=== PATIENT | female | born 1995 | race Caucasian/White ===

== ENCOUNTER 2017-02-06 20:19 | Emergency (ER) | payer OTHER ==
[2017-02-06 21:06] LABS: Hematocrit 40.9 % (30.3-42.9); Hemoglobin 13.6 gm/dl (10.1-14.3); Mean Corpuscular HGB Conc 33 % (30-34); Mean Corpuscular Hemoglobin 31 pg (28-32); Mean Corpuscular Volume 92 fl (79-97); Platelet Count 220 K/mm3 (140-440); Red Blood Count 4.45 M/mm3 (3.65-5.03); Red Cell Distribution Width 13.2 % (13.2-15.2)
[2017-02-06 21:21] LABS: BUN/Creatinine Ratio 18; Blood Urea Nitrogen 9 mg/dL (7-17); Calcium 9.6 mg/dL (8.4-10.2); Hemolysis Index 5
[2017-02-06 22:15] LABS: Bilirubin,Urine NEG (Negative); Blood,Urine NEG (Negative); Color,Urine Yellow (Yellow); Mucus,Urine 3+ /HPF; Nitrite,Urine NEG (Negative)
--- NOTE | 2017-02-07 05:54 | Ultrasound Report ---
FINAL REPORT EXAM: US OB TRANSVAGINAL HISTORY: VAGINAL BLEEDING WITH TECHNIQUE: Transvaginal imaging was obtained of the pelvis along with Doppler interrogation of the uterus and adnexa. FINDINGS: The uterus is retroverted measuring 9.6 cm x 6.5 cm x 6.5 cm. Within the uterus is a gestational sac containing a yolk sac and embryo. The embryo measures 20.7 millimeters and crown-rump length. There is corresponds to an 8 week 5 day IUP. The heart rate is 178 BPM. Adjacent to the gestational sac is a hypoechoic area measuring 2.2 cm x 0.4 cm x 0.7 cm consistent with a subchorionic bleed. Free fluid is not seen. The right ovary measures 3.1 cm x 1.7 cm x 2.5 cm. Within the right ovary is a hemorrhagic hypoechoic cyst measuring 1.7 cm in diameter. The left ovary measures 2.5 cm x 1.6 cm x 1.5 cm. Within the left ovary are several small benign follicles. IMPRESSION: Single viable IUP of 8 weeks 5 days. heart rate is 178 BPM. Functional cysts in both ovaries as described. No evidence of free fluid.
--- NOTE | 2017-02-07 05:55 | Ultrasound Report ---
FINAL REPORT EXAM: US OB < = 14 WEEKS FETUS HISTORY: VAGINAL BLEEDING WITH TECHNIQUE: Transabdominal imaging was obtained of the pelvis along with Doppler interrogation of the uterus and adnexa. FINDINGS: The uterus is retroverted measuring 9.6 cm x 6.5 cm x 6.5 cm. Within the uterus is a gestational sac containing a yolk sac and embryo. The embryo measures 20.7 millimeters and crown-rump length. This corresponds to an 8 week 5 day IUP. The heart rate is 178 BPM. Adjacent to the gestational sac is a hypoechoic area measuring 2.2 cm x 0.4 cm x 0.7 cm. This is consistent with a subchorionic hemorrhage. The right ovary measures 3.1 cm x 1.7 cm x 2.5 cm. Within the right ovary is a hemorrhagic cyst measuring 1.7 cm in diameter. The left ovary measures 2.5 cm x 1.6 cm x 1.5 cm. There is several small follicles in the left ovary. Free fluid is not seen. IMPRESSION: Single viable IUP, 8 weeks 5 days. heart is 178 BPM. Functional cysts in both ovaries. No evidence of free fluid in the pelvis.
--- NOTE | 2017-02-07 08:15 | Emergency Department Report ---
ED HPI - General Chief complaint: Vaginal Bleeding Stated complaint: VAGINAL BLEEDING Time Seen by Provider: 02/07/17 07:32 Source: patient Mode of arrival: Ambulatory Limitations: Language Barrier - History of Present Illness Initial comments: Patient is a 21-year-old female who is presenting with lower abdominal cramping as well as vaginal discharge. Patient states vaginal discharge and his lites less than a period mostly when she wipes. Patient states she was recently diagnosed with UTI approximately a week ago. Patient states symptoms are still present she does have some mild dysuria. Patient took a home test and it was positive. She suspect that she is approximately one- month . Patient has no other symptoms at this time. MD Complaint: abdominal pain, vaginal bleeding -: days(s) (2) Radiation: none Severity: mild Severity scale (0 -10): 3 Quality: cramping Consistency: constant Improves with: none Worsens with: none Associated symptoms: vaginal bleeding, abdominal pain, dysuria. denies: nausea/ vomiting, vaginal discharge, headache, vision changes, malaise, dysparuenia, rash, shortness of breath, syncope, weakness Vaginal bleeding: none :: Yes - Related Data Previous Rx's Medication Instructions Recorded Last Taken Type Nitrofurantoin [place]/M-Cryst 100 mg PO Q12HR 7 Days capsule 02/07/17 Unknown Rx [Macrobid CAP] Allergies Allergy/AdvReac Type Severity Reaction Status Date / Time No Known Allergies Allergy Unverified 02/06/17 20:27 ED Review of Systems ROS: Stated complaint: VAGINAL BLEEDING Other details as noted in HPI Comment: All other systems reviewed and negative ED Past Medical Hx - Past Medical History Additional medical history: HYPOTHYROIDISM - Social History Smoking Status: Never Smoker Substance Use Type: None - Medications Home Medications: Home Medications Medication Instructions Recorded Confirmed Last Taken Type Nitrofurantoin [place]/M-Cryst 100 mg PO Q12HR 7 Days capsule 02/07/17 Unknown Rx [Macrobid CAP] ED Physical Exam - General Limitations: Language Barrier General appearance: alert, in no apparent distress - Head Head exam: Present: atraumatic, normocephalic - Eye Eye exam: Present: normal appearance - ENT ENT exam: Present: mucous membranes moist - Neck Neck exam: Present: normal inspection - Respiratory Respiratory exam: Present: normal lung sounds bilaterally. Absent: respiratory distress - Cardiovascular Cardiovascular Exam: Present: regular rate, normal rhythm. Absent: systolic murmur, diastolic murmur, rubs, gallop - GI/Abdominal GI/Abdominal exam: Present: soft, normal bowel sounds - Extremities Exam Extremities exam: Present: normal inspection - Back Exam Back exam: Present: normal inspection - Neurological Exam Neurological exam: Present: alert, oriented X3 - Psychiatric Psychiatric exam: Present: normal affect, normal mood - Skin Skin exam: Present: warm, dry, intact, normal color. Absent: rash ED Course Vital Signs 02/06/17 02/07/17 02/07/17 20:23 05:44 09:37 Temperature 97.7 F 98.0 F 98.2 F Pulse Rate 79 69 71 Respiratory 18 18 18 Rate Blood Pressure 105/55 106/47 Blood Pressure 110/58 [Right] O2 Sat by Pulse 100 99 99 Oximetry ED Medical Decision Making - Lab Data Result diagrams: 02/06/17 20:44 02/06/17 20:44 Critical care attestation.: If time is entered above; I have spent that time in minutes in the direct care of this critically ill patient, excluding procedure time. ED Disposition Clinical Impression: Threatened miscarriage in early , UTI in Disposition: DC-01 TO HOME OR SELFCARE Is pt being admited?: No Does the pt Need Aspirin: No Condition: Fair Instructions: Threatened Miscarriage (ED), Urinary Tract Infection in Women (ED ) Prescriptions: Nitrofurantoin [place]/M-Cryst [Macrobid CAP] 100 mg PO Q12HR 7 Days capsule Referrals: TRUNG MOSHER MD [Staff Physician] - 3-5 Days Print Language: ARMENIAN
[2017-02-07 09:38] VITALS: BP 110/58
== END 2017-02-07 10:24 | disposition home or self-care (01) ==
LOC: ED 20:19
DX: O20.0 Threatened abortion (principal); O23.41 Unspecified infection of urinary tract in pregnancy, first trimester; Z3A.08 8 weeks gestation of pregnancy
CPT/HCPCS: 36415; 76801; 76817; 80048; 81001; 84702; 85027; 86900; 86901; 99284